=== PATIENT | female | born 1965 | race Caucasian/White ===

== ENCOUNTER 2025-09-12 08:44 | Inpatient (IN) | payer BC, SELFPAY ==
[2025-09-11] VITALS (9 sets, daily range): BP systolic 73–108; BP diastolic 48–70; BMI 30.4
[2025-09-11 20:39] LABS: Hematocrit 46.0 % (37.0-47.0); Hemoglobin 15.8 g/dL (12.0-16.0); Mean Corp Hgb Conc. 34.3 g/dL (33.0-37.0); Mean Corpuscular Volume 91.8 fL (81.0-99.0); Nucleated Red Blood Cells % 0 %; Platelet Count 300 10^3/uL (130-400); Red Cell Dist. Width 12.8 % (11.5-14.5)
[2025-09-11 20:49] LABS: ALT (SGPT) 21 U/L (0-35); AST (SGOT) 20 U/L (14-36); Albumin 4.4 g/dl (3.5-5.0); Alkaline Phosphatase 51 U/L (38-126); Blood Urea Nitrogen 43 mg/dl (7-17); Calcium 10.3 mg/dl (8.4-10.2); Carbon Dioxide 29 mmol/L (22-30); Chloride 98 mmol/L (98-107); Glucose 180 mg/dl (70-99); Potassium 3.9 mmol/L (3.5-5.1); Sodium 136 mmol/L (135-145); Total Protein 7.3 g/dl (6.3-8.2); eGFR 23.59
--- NOTE | 2025-09-11 22:46 | ED.GENMED ---
History of Present Illness
<Zahida Mcbride NP - Last Filed: 09/12/25 01:03>
General
Chief Complaint: Abdominal Symptoms
Source: patient
Exam Limitations: none
Time Seen by Provider: 09/11/25 22:37
Nursing documentation reviewed up to this point in time: agreed with
History of Present Illness
History of Present Illness:
Patient to the emergency department with complaint of severe nausea vomiting and diarrhea. She states her symptoms started yesterday. She denies any fever or chills. She denies any sick contacts. States she has been unable to eat or drink due to
the constant nausea and vomiting. Brought to the emergency department by spouse for evaluation. She denies any history of same
Past History
<Zahida Mcbride DIE MACHINE OPERATOR - Last Filed: 09/12/25 01:03>
Past History
ED Past Medical History: HTN, Other (Kidney stones) and Other (Migraines)
ED Past Surgical History:
Social History
Tobacco: Non-smoker
Review of Systems
<Zahida Mcbride DIE MACHINE OPERATOR - Last Filed: 09/12/25 01:03>
Review of Systems
Allergies reviewed?: Yes
All Other Systems: ROS reviewed and negative except as documented in HPI and ROS
Constitutional: Reports fatigue
EENT: Reports no symptoms
Respiratory: Reports no symptoms
Cardiac: Reports no symptoms
ABD/GI: Reports abdominal pain (Diffuse abdominal pain.), nausea, vomiting and diarrhea
: Reports no symptoms
Musculoskeletal: Reports no symptoms
Skin: Reports no symptoms
Neurological: Reports weakness
Psychiatric: Reports no symptoms
Phy Exam
<Zahida Mcbride DIE MACHINE OPERATOR - Last Filed: 09/12/25 01:03>
General Physical Exam
General Presentation: moderate distress
General age: appears stated age
General Skin: warm and dry
General Habitus: normal
General Mental: alert
Gastrointestinal Exam
Gastrointestinal Exam: soft, no pulsatile mass and non distended
Palpation: generalized: Moderate tenderness
Musculoskeletal Exam
Musculoskeletal Exam: full ROM and neuro vasc intact
Skin Exam
Skin Exam: normal color, warm/dry and no rash
Psychiatric Exam
Psychiatric Exam: normal mood/affect
Course
<Zahida Mcbride DIE MACHINE OPERATOR - Last Filed: 09/12/25 01:03>
Orders/Labs/Results
Orders:
Orders
09/11/25 20:25
Complete Blood Count/With Diff Urgent
Comprehensive Metabolic Panel Urgent
09/11/25 22:45
Urinalysis Reflex To Culture Urgent
Norovirus by PCR Urgent
GALLO Source: Feces/Stool
Specimen Description:
STOOL [C difficile Antigen & Toxins] Urgent
GALLO Source: Feces/Stool
Specimen Description:
Stool Culture Urgent
GALLO Source: Feces/Stool
Specimen Description:
0.9% Sodium Chloride 1000 ml [Nss] 1,000 ml IV BOLUS
09/11/25 22:48
Lactic Acid Urgent
Blood Culture Urgent
GALLO Source: Blood/Venous
Specimen Description:
09/11/25 22:49
HYDROmorphone [Dilaudid] 0.5 mg IV NOW STA
Ondansetron Injectable [Zofran] 4 mg IV NOW STA
09/11/25 23:17
0.9% Sodium Chloride 1000 ml [Nss] 1,000 ml IV BOLUS
09/12/25
CT Abd/pel Without Iv Or Oral Urgent
Reason For Exam: diffuse pain, vomiting
Abnormal Lab Results
09/11/25 09/11/25
20:25 22:48
WBC 21.0 H 10^3/uL
(4.8-10.8)
MCH 31.5 H pg
(27.0-31.0)
Abs Immat Gran (auto) 0.1 H 10^3/uL
(0-0.05)
Absolute Neuts (auto) 18.8 H 10^3/uL
(1.4-6.5)
Absolute Lymphs (auto) 0.8 L 10^3/uL
(1.2-3.4)
Absolute Monos (auto) 1.1 H 10^3/uL
(0.1-0.6)
Immature Gran % 0.6 H %
(0-0.5)
Neutrophils % 89.8 H %
(42.2-75.2)
Lymphocytes % 4.0 L %
(20.5-51.1)
BUN 43 H mg/dl
(7-17)
Creatinine 2.3 H mg/dL
(0.6-1.0)
Glucose 180 H mg/dl
(70-99)
Lactic Acid 2.9 H mmol/L
(0.7-2.0)
Calcium 10.3 H mg/dl
(8.4-10.2)
09/11/25 20:25
09/11/25 20:25
Vital Signs
Initial and Last Documented VS:
Initial Vital Signs
Temp Pulse Resp BP Pulse Ox
98.3 F 120 16 108/70 97
09/11/25 20:18 09/11/25 20:18 09/11/25 20:18 09/11/25 20:18 09/11/25 20:18
Last Documented Vital Signs
Temp Pulse Resp BP Pulse Ox
98.4 F 89 23 103/56 97
09/11/25 22:45 09/11/25 23:50 09/11/25 23:50 09/11/25 23:50 09/11/25 23:50
<Susannah Brothers, - Last Filed: 09/11/25 23:51>
Orders/Labs/Results
Orders:
Orders
09/11/25 20:25
Complete Blood Count/With Diff Urgent
Comprehensive Metabolic Panel Urgent
09/11/25 22:45
Urinalysis Reflex To Culture Urgent
Norovirus by PCR Urgent
GALLO Source: Feces/Stool
Specimen Description:
STOOL [C difficile Antigen & Toxins] Urgent
GALLO Source: Feces/Stool
Specimen Description:
Stool Culture Urgent
GALLO Source: Feces/Stool
Specimen Description:
0.9% Sodium Chloride 1000 ml [Nss] 1,000 ml IV BOLUS
09/11/25 22:48
Lactic Acid Urgent
Blood Culture Urgent
GALLO Source: Blood/Venous
Specimen Description:
09/11/25 22:49
HYDROmorphone [Dilaudid] 0.5 mg IV NOW STA
Ondansetron Injectable [Zofran] 4 mg IV NOW STA
09/11/25 23:17
0.9% Sodium Chloride 1000 ml [Nss] 1,000 ml IV BOLUS
09/12/25
CT Abd/pel Without Iv Or Oral Urgent
Reason For Exam: diffuse pain, vomiting
Abnormal Lab Results
09/11/25 09/11/25
20:25 22:48
WBC 21.0 H 10^3/uL
(4.8-10.8)
MCH 31.5 H pg
(27.0-31.0)
Abs Immat Gran (auto) 0.1 H 10^3/uL
(0-0.05)
Absolute Neuts (auto) 18.8 H 10^3/uL
(1.4-6.5)
Absolute Lymphs (auto) 0.8 L 10^3/uL
(1.2-3.4)
Absolute Monos (auto) 1.1 H 10^3/uL
(0.1-0.6)
Immature Gran % 0.6 H %
(0-0.5)
Neutrophils % 89.8 H %
(42.2-75.2)
Lymphocytes % 4.0 L %
(20.5-51.1)
BUN 43 H mg/dl
(7-17)
Creatinine 2.3 H mg/dL
(0.6-1.0)
Glucose 180 H mg/dl
(70-99)
Lactic Acid 2.9 H mmol/L
(0.7-2.0)
Calcium 10.3 H mg/dl
(8.4-10.2)
09/11/25 20:25
09/11/25 20:25
Vital Signs
Initial and Last Documented VS:
Initial Vital Signs
Temp Pulse Resp BP Pulse Ox
98.3 F 120 16 108/70 97
09/11/25 20:18 09/11/25 20:18 09/11/25 20:18 09/11/25 20:18 09/11/25 20:18
Last Documented Vital Signs
Temp Pulse Resp BP Pulse Ox
98.4 F 89 23 103/56 97
09/11/25 22:45 09/11/25 23:50 09/11/25 23:50 09/11/25 23:50 09/11/25 23:50
<Zahida Mcbride NP - Last Filed: 09/12/25 01:03>
*Radiology
Radiology exam reviewed: radiology read reviewed
*Pulse Oximetry
SaO2: 99
Oxygen Mode of Delivery: Room air
Patient hypoxic: no
*Critical Care Note
Total Time (30-74mins, 75-104mins- exclusive of procedures): Not Applicable
<Zahida Mcbride NP - Last Filed: 09/12/25 01:03>
Update Note
Update Note:
Patient to the emergency department with complaint of diffuse abdominal pain nausea vomiting and diarrhea. She reports intermittent episodes of bloody diarrhea. Symptoms started yesterday and have become progressively worse over the past 24 hours.
Vital signs stable she remains afebrile. Labs reviewed WBC 21.0 noted, lactic 2.9. She was given 2LNSS. BUN 43/creat 2.3., LFTs normal. CT of abdomen and pelvis was completed. Results of wall thickening in the transverse colon through the
sigmoid colon compatible with colitis. She will be admitted to the hospitalist for colitis, dehydration, JULIANNE. Antibiotics started in the ED. discussed CT findings and admission plan with patient and she is agreeable.
ED Attending Note
<Zahida Mcbride NP - Last Filed: 09/12/25 01:03>
-
Portions of this chart may have been created with voice recognition software.� Occasional wrong word or��sound alike� substitutions may have occurred due to the inherent limitations of voice recognition software.
<Susannah Brothers DO - Last Filed: 09/11/25 23:51>
ED Attending Note
Patient seen and examined by attending physician: Yes
I performed a history and physical exam of patient and discussed management with resident, I reviewed resident's note and agree with documented findings and plan of care.: Yes
ED Attending Note:
60-year-old woman with history of hypertension, kidney stones, migraine headaches presents with over 24-hour history of generalized abdominal pain associated with nausea/vomiting/diarrhea.
Symptoms are moderate to severe in nature, multiple episodes of vomiting throughout the past 24 hours as well as multiple watery stools, initially liquid brown stool, has noted some blood in her stool this evening. She denies fevers or chills but
admits to generalized malaise and some lightheadedness upon standing tonight.
Symptoms began after eating a cheese steak for dinner last night. No close contacts with similar symptoms and no family members consumed similar cheese steak.
No recent travel nor recent antibiotic use.
No history of similar episodes in the past.
60-year-old woman appears her stated age, awake and alert, mildly ill in appearance but easily communicative.
Vital signs notable for moderate tachycardia and mild hypotension initially.
Thus far has received 1 L normal saline solution tachycardia and hypotension improving. She remains afebrile. Second liter of normal saline solution infusing now.
HEENT: Oral mucosa is mildly dry. Anicteric.
Heart is regular rate and rhythm at 90. No murmur no rub.
Lungs are clear to auscultation. No respiratory distress.
Abdomen is soft, nondistended, mild generalized tenderness to palpation. Normal active bowel sounds. No palpable masses.
Concern for acute gastroenteritis/acute colitis either foodborne versus viral in nature. Bowel obstruction is also consideration. C. difficile colitis is a consideration however no history of C. difficile in the past and no recent antibiotics. No
close contacts with similar symptoms.
Concern for acute sepsis
Laboratory studies reveal markedly elevated white blood cell count of 21.
Acute kidney injury with BUN of 43, creatinine of 2.3. Normal electrolytes.
Random glucose mildly elevated at 180. LFTs within normal limits.
Lactic acid mildly elevated at 2.9.
Abnormal vital signs, elevated lactic acid and mild hypotension initially consistent with acute sepsis.
Will check CT abdomen and pelvis. Continue IV fluids. Continue as needed pain medication, antiemetics for symptom control.
Will plan for stool cultures if diarrhea recurs.
Consider IV antibiotics depending on CAT scan result.
Due to acute kidney injury, SIRS/sepsis, patient will require acute hospitalization.
Discharge Plan
Departure
Patient Disposition: Admit
Date of Disposition: 09/12/25
Time of Disposition: 01:00
Presentation/result/management discussed w/ accepting MD/DO: Hospitalist
Condition: Fair
Covid-19: Not Applicable
Discharge Problem:
Colitis, Acute dehydration, JULIANNE (acute kidney injury)
Prescriptions:
No Action
lisinopril 20 MG tablet
40 mg PO DAILY
sumatriptan succinate 50 MG tablet
100 mg PO PRN PRN (Reason: migraines)
Effexor:
150 mg PO DAILY
hydrochlorothiazide 12.5 MG capsule
12.5 mg PO DAILY
uqaqzxsw-twt-jiztc acid-lutein 1 EACH tablet,chewable
1 ea PO DAILY
Referrals:
Vannessa Hannah PA-C [Family Provider]
Interventions
Interventions:
*Risk Screen - Suicide Last Done: 09/11/25 20:20
*General Assessment Last Done: 09/11/25 22:36
*Neglect/Abuse Screening Last Done: 09/11/25 20:20
*ED- Fall Risk Assessment Last Done: 09/11/25 22:36
*ED COVID-19 Vaccine History Last Done: 09/11/25 22:36
*ED Influenza Vaccine History Last Done: 09/11/25 22:36
FA-Aawjej-Onmwgnqjbe Assessment Last Done: 09/11/25 22:36
Discharge Date and Time
Print Language: JAPANESE
[2025-09-11] MEDS: NSS 1000 IV ×2 (22:53→23:29)
[2025-09-11] MEDS: DILAUDID 0.5 MG IV (22:54)
[2025-09-11] MEDS: ZOFRAN 4 MG IV (22:54)
[2025-09-12] VITALS (17 sets, daily range): BP systolic 92–114; BP diastolic 57–91
--- NOTE | 2025-09-12 01:08 | HPS.HSE ---
Family Physician
-
Family Physician: Vannessa Hannah PA-C
Chief Complaint
-
Abdominal symptoms
History of Present Illness
This is a 60-year-old female with past medical history significant for hypertension, migraine headaches presenting to the emergency department with diarrhea and lightheadedness.
Patient reports onset of symptoms yesterday. She noticed vomiting and diarrhea that started simultaneously with some associated abdominal cramps and pain. She reports chills but no fevers. She states she has been having continuous diarrhea over
the last 24 hours going more than 6 times a day and several times an hour. However since she has been in the Emergency Department she has not had any bowel movement. She last had a vomiting while she was in triage. It was nonbloody and
nonbilious. She denies any recent travels. 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
In the emergency department she was afebrile, blood pressure was 103/56 with a pulse rate of 89 and she was satting 97% on room air.
Lactic acid was 2.9, WBC is 21 hemoglobin and platelets were 15.8 and 300. Her electrolytes were within the normal range. BUN and creatinine were 43 and 2.3 with a glucose of 100.
CT of the abdomen and pelvis showing wall thickening of the transverse colon through 3 sigmoid colon compatible with acute colitis.
Medical History
Past Medical History
Past Medical History: Reports HTN and Other (Nephrolithiasis)
Past Surgical History: Reports Other (Bilateral ureteroscopy, laser lithotripsy and stenting, Right Ureteroscopy, Laser Lithotripsy, Laser abalation of lateral Calyceal Diverticulum, )
Social History
Tobacco: Non-smoker
Alcohol: None
Drug: None
Family History
Family History: Not pertinent
Allergies / Home Medications
Allergies reflects when Allergies were last updated in [facility].
Home Medications with original date entered in [facility]
Allergy/Medication List:
Allergies
Allergy/AdvReac Type Severity Reaction Status Date / Time
No Known Allergies Allergy Verified 12/19/20 07:56
Home Medications
Effexor: 150 mg PO DAILY 05/26/20
lisinopril 20 mg tablet 40 mg PO DAILY 05/26/20
sumatriptan succinate 50 mg tablet 100 mg PO PRN PRN migraines 05/26/20
hydrochlorothiazide 12.5 mg capsule 12.5 mg PO DAILY 12/19/20
cfzvbyxjurmy-kljq-lfseq acid 200 mcg-lutein 137.5 mcg chewable tablet 1 ea PO DAILY 12/19/20
Review of Systems
-
Constitutional: Reports No Symptoms
EENT: Reports No Symptoms
Respiratory: Reports No Symptoms
Cardiac: Reports No Symptoms
Abdomen/GI: Reports Abdominal Pain, Vomiting and Diarrhea
: Reports No Symptoms
Musculoskeletal: Reports No Symptoms
Skin: Reports No Symptoms
Neurological: Reports No Symptoms
Endocrine: Reports No Symptoms
Hematologic/Lymphatic: Reports No Symptoms
Psych: Reports No Symptoms
Physical Exam
Vital Signs
Vital Signs
Temp Pulse Resp BP Pulse Ox
98.4 F 89 23 103/56 97
09/11/25 22:45 09/11/25 23:50 09/11/25 23:50 09/11/25 23:50 09/11/25 23:50
Physical Exam
General: Well Developed, Well Nourished and No Apparent Distress
HEENT: NormoCephalic, Moist mucous membranes and Atraumatic
Respiratory: Clear
Cardiac: S1/S2 and Regular Rhythm; No Murmur or Rub
GI: Soft, Non Tender, Non Distended and Normal Bowel Sounds; No Organomegaly
Rectal: Deferred by Provider
Musculoskeletal: No Clubbing, No Cyanosis and No Edema
Skin: No Rash
Neuro: AO x 3 and Nonfocal/grossly intact
Psych: Calm
Laboratory Results
-
09/11/25 20:25
09/11/25 20:25
Laboratory Results
Lactic Acid 2.9 mmol/L (0.7-2.0) H 09/11/25 22:48
Total Bilirubin 0.7 mg/dl (0.2-1.3) 09/11/25 20:25
AST 20 U/L (14-36) 09/11/25 20:25
ALT 21 U/L (0-35) 09/11/25 20:25
Alkaline Phosphatase 51 U/L (38-126) 09/11/25 20:25
Data Reviewed
-
CT Scan: Report Reviewed by me
Lab Data: Labs Reviewed by me
Old Records: Reviewed
Impression/Plan
-
IMPRESSION:
60-year-old with past medical history of migraine headaches and hypertension presenting to the emergency department with nausea vomiting and diarrhea starting about 1-1/2 days ago. She reports being lightheaded and dizzy. She reports chills shakes
but denies any fever. She is afebrile here but has leukocytosis to 21. No diarrhea so find emergency department no further vomiting and pain under control. Lactic acid is 2.9. She has JULIANNE with a creatinine of 2.3 up from a baseline of 1.3.
PLAN:
Diarrhea -suspect viral enterocolitis. CT scan compatible with colitis. Patient does have leukocytosis. No recent antibiotic use. No history of CAD. Denies history of inflammatory bowel disease.
- admit to med/surg
- pain control and antiemetics
- stool studies including cdiff, wbc and culture pending
- blood and urine cultures sent
- hold further abx for now unless febrile
- IV fluid resuscitation
JULIANNE - Cr 2.4 from bl 1.3. Pre-renal azotemia suspected.
- hold hctz/lisinopril
- IV fluids as above
HTN - currently bp is low but not hypotensive
- hold antihypertensives for now
DVT PPX - heparin sq
[2025-09-12] MEDS: ZOSYN 50 IV (01:13)
[2025-09-12] MEDS: NSS 1000 IV ×3 (02:56→23:42)
[2025-09-12 06:40] LABS: Hematocrit 38.4 % (37.0-47.0); Hemoglobin 12.7 g/dL (12.0-16.0); Mean Corp Hgb Conc. 33.1 g/dL (33.0-37.0); Mean Corpuscular Volume 98.2 fL (81.0-99.0); Platelet Count 211 10^3/uL (130-400); Red Cell Dist. Width 12.9 % (11.5-14.5)
[2025-09-12 07:23] LABS: Blood Urea Nitrogen 39 mg/dl (7-17); Calcium 8.6 mg/dl (8.4-10.2); Carbon Dioxide 28 mmol/L (22-30); Chloride 103 mmol/L (98-107); Estimated Creatinine Clearance 28 ml/min; Glucose 109 mg/dl (70-99); Potassium 3.5 mmol/L (3.5-5.1); Sodium 138 mmol/L (135-145); eGFR 26.31
[2025-09-12] MEDS: EFFEXOR XR 150 MG PO (08:48)
[2025-09-12] MEDS: ZOFRAN 4 MG IV (08:48)
[2025-09-12] MEDS: ROXICODONE 5 MG PO ×2 (08:48→15:55)
[2025-09-12] MEDS: HEPARIN 5000 UNITS SC ×2 (08:49→15:55)
[2025-09-12] MEDS: KCL 40 MEQ PO (11:02)
[2025-09-12 11:34] LABS: Magnesium 1.9 mg/dl (1.6-2.3)
--- NOTE | 2025-09-12 12:12 | W.PN.HOSP.TC ---
Today's Communication/Plan
-
IV fluid support
Hold antihypertensives
Check stool studies
Urinalysis
Advance diet as tolerated
Update home medication list
Assessment / Plan
Assessment / Plan
Gen-AAOx3, NAD
HEENT-NC, AT, anicteric, clear oral mm
Neck-supple
CV-reg, no M, +S1/S2
Lungs-clear B/L
Abd-soft, NT, ND
Ext-no edema
Musculoskeletal-no cyanosis, clubbing
Skin-warm and dry
Neuro-grossly non-focal
Psych-calm, cooperative
Sepsis due to acute gastroenteritis/septic shock -sepsis with end organ damage of acute kidney injury. Sepsis present on admission. Presentation with shock, hypotension, leukocytosis, elevated lactate. Initial blood pressure 73/48. Blood
pressure improving with IV fluids. Did not require vasopressors. Holding antihypertensives. WBC count now trending down. Blood cultures sent, pending. Not currently on antibiotics.
Acute gastroenteritis -likely infectious, exposed to patient recently with norovirus.
Admission CT scan shows bowel wall thickening and moderate inflammatory change adjacent to the distal transverse colon, descending colon, sigmoid colon consistent with moderate colitis.
Check stool studies. Discussed with patient and nurse.
Tolerating clear liquids, advance as tolerated.
Recommend outpatient follow-up with gastroenterology for colonoscopy. Patient has never had a colonoscopy. We discussed the importance of colon cancer screening.
JULIANNE -likely due to sepsis, shock, volume depletion in the setting of 1 functioning kidney. Improving with IV fluids. Baseline creatinine 1.1, approximately 1 month ago as per patient. Check urinalysis, monitor urine output.
Acute lower GI bleed -due to acute gastroenteritis. Hemoglobin has been normal. Monitor closely.
Essential hypertension -currently hypotensive. Hold antihypertensives.
Nephrolithiasis -bilateral nephrolithiasis without hydronephrosis or ureteral stone noted on admission CT. She is complaining of hematuria, urinalysis pending. Asymmetric left renal atrophy noted, unchanged compared to prior study. Patient notes
that she has 1 functioning kidney.
Obesity due to excess calories
Full code
Please obtain home medication list. Discussed with nursing.
updated at the bedside.
Anticipated Discharge: 24 - 48 hours
Subjective/Interval History
-
Date of Service: September 12, 2025
Patient seen and examined. Had bloody bowel movement this morning. No further loose stools. Denies vomiting. Complaining of lack of appetite.
Objective Data
-
Labs:
Laboratory Results
09/12/25
05:54
WBC 15.9 H
Hgb 12.7
Hct 38.4
Plt Count 211 D
Sodium 138
Potassium 3.5
Chloride 103
Carbon Dioxide 28
BUN 39 H
Creatinine 2.1 H
Glucose 109 H
Calcium 8.6 D
Vital Signs:
Vital Signs
Temp Pulse Resp BP Pulse Ox
98.4 F 90 20 104/68 95
09/12/25 07:01 09/12/25 07:01 09/12/25 07:01 09/12/25 07:01 09/12/25 07:01
Review of Systems
-
History Source: Patient
All other systems: Reviewed and negative
--- NOTE | 2025-09-12 12:29 | CM ---
CM reviewed chart and spoke with patient and her significant other Gunner at bedside.
Lives in a 2 story home with SO Gunner .
PLOF Independent with ADLs and ambulation. 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
no DME
PCP Dr. Vannessa Hannah
RX plan yes
Pharmacy [facility] in [place]
no hx of VN nor SNF in the past
DCP home with no needs but will continue to follow up
[employer] Gunner is able to provide transporation at the time of DC
CM will continue to follow up for any dcp needs
[2025-09-12 16:33] LABS: Urine Character Slightly Cloudy (Clear)
[2025-09-12 16:43] LABS: Urine Squamous Cell 21-25 /LPF (Few)
[2025-09-12 16:44] LABS: Urine Red Blood Cell 0-2 /HPF (0-2); Urine White Cell 50-60 /HPF (0-5)
[2025-09-12] MEDS: DILAUDID 0.5 MG IV (20:26)
[2025-09-13] MEDS: HEPARIN SC ×2 (00:24→08:15)
[2025-09-13 07:00] VITALS: BP 113/68
[2025-09-13 07:00] LABS: Hematocrit 36.0 % (37.0-47.0); Hemoglobin 11.6 g/dL (12.0-16.0); Mean Corp Hgb Conc. 32.2 g/dL (33.0-37.0); Mean Corpuscular Volume 100.3 fL (81.0-99.0); Nucleated Red Blood Cells % 0 %; Platelet Count 149 10^3/uL (130-400); Red Cell Dist. Width 12.7 % (11.5-14.5)
[2025-09-13 07:20] LABS: Blood Urea Nitrogen 20 mg/dl (7-17); Calcium 8.7 mg/dl (8.4-10.2); Carbon Dioxide 28 mmol/L (22-30); Chloride 104 mmol/L (98-107); Estimated Creatinine Clearance 49 ml/min; Glucose 84 mg/dl (70-99); Potassium 3.9 mmol/L (3.5-5.1); Sodium 133 mmol/L (135-145); eGFR 51.50
[2025-09-13] MEDS: EFFEXOR XR 150 MG PO (08:13)
--- NOTE | 2025-09-13 10:52 | W.DS.TRANS ---
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
-
Discharge Instructions:
Discharge Diagnosis/Procedures Acute gastroenteritis, sepsis, acute kidney
injury
Diet Low Residue
Activity As tolerated
Driving Restrictions As prior to admission
Bathing Restrictions None
Instructions:
Stand-Alone Forms:
Changes to Home Medications: No
Discharge Medications:
DC Medications w/original date entered in [facility]
Effexor: 150 mg PO DAILY Depression 05/26/20
lisinopril 20 mg tablet 10 mg PO DAILY Blood Pressure 05/26/20
sumatriptan succinate 50 mg tablet (Imitrex) 100 mg PO PRN PRN migraines 05/26/20
hydrochlorothiazide 12.5 mg capsule 12.5 mg PO DAILY Fluid Retention/Swelling 12/19/20
pqtgaizwfpjg-ohta-ytwsg acid 200 mcg-lutein 137.5 mcg chewable tablet 1 ea PO DAILY Supplement 12/19/20
Ozempic 2 mg SC Q2W Diabetes 09/12/25
Home Medication Changes
Pending Results: No
--- NOTE | 2025-09-13 11:01 | W.PN.HOSP.TC ---
Today's Communication/Plan
-
Discharge
Assessment / Plan
Assessment / Plan
Gen-AAOx3, NAD
HEENT-NC, AT, anicteric, clear oral mm
Neck-supple
CV-reg, no M, +S1/S2
Lungs-clear B/L
Abd-soft, NT, ND
Ext-no edema
Musculoskeletal-no cyanosis, clubbing
Skin-warm and dry
Neuro-grossly non-focal
Psych-calm, cooperative
Sepsis due to acute gastroenteritis/septic shock -sepsis with end organ damage of acute kidney injury. Sepsis present on admission. Presentation with shock, hypotension, leukocytosis, elevated lactate. Initial blood pressure 73/48. Blood
pressure improving with IV fluids. Did not require vasopressors. Holding antihypertensives. WBC count now normal. Blood cultures negative so far. Did not require antibiotics.
Acute gastroenteritis -likely infectious, exposed to patient recently with norovirus.
Admission CT scan shows bowel wall thickening and moderate inflammatory change adjacent to the distal transverse colon, descending colon, sigmoid colon consistent with moderate colitis.
No stool available for testing.
Diet advanced to low residue. Low lactose. Discussed with patient.
Recommend outpatient follow-up with gastroenterology for colonoscopy. Patient has never had a colonoscopy. We discussed the importance of colon cancer screening.
JULIANNE -likely due to sepsis, shock, volume depletion in the setting of 1 functioning kidney. Improving with IV fluids. Baseline creatinine 1.1, approximately 1 month ago as per patient.
Creatinine improved to 1.2 today.
Hyponatremia -133. Hold HCTZ on discharge, BMP in 1 week.
Asymptomatic pyuria -noted on urinalysis. Doubt UTI.
Acute lower GI bleed -due to acute gastroenteritis. Hemoglobin has been normal. Monitor closely.
Essential hypertension -blood pressure improved. Can resume meds on discharge.
Nephrolithiasis -bilateral nephrolithiasis without hydronephrosis or ureteral stone noted on admission CT. She is complaining of hematuria, urinalysis pending. Asymmetric left renal atrophy noted, unchanged compared to prior study. Patient notes
that she has 1 functioning kidney.
Obesity due to excess calories
Full code
Dispo -medically stable for discharge today. Outpatient follow-up with PCP, GI.
Discussed with nursing.
updated at the bedside.
32 minutes spent in discharge process.
Anticipated Discharge: Today
Subjective/Interval History
-
Date of Service: September 13, 2025
Patient seen and examined. Feeling better. No complaints.
Objective Data
-
Labs:
Laboratory Results
09/13/25
05:34
WBC 8.9
Hgb 11.6 L
Hct 36.0 L
Plt Count 149 D
Sodium 133 L
Potassium 3.9
Chloride 104
Carbon Dioxide 28
BUN 20 H
Creatinine 1.2 H
Glucose 84
Calcium 8.7
Vital Signs:
Vital Signs
Temp Pulse Resp BP Pulse Ox
98.7 F 89 18 113/68 96
09/13/25 07:00 09/13/25 07:00 09/13/25 07:00 09/13/25 07:00 09/13/25 07:00
I&O
09/12/25 09/13/25 09/14/25
06:59 06:59 06:59
Intake Total 1959
Balance 1959
Review of Systems
-
History Source: Patient
All other systems: Reviewed and negative
[2025-09-13 11:28] VITALS: BP 118/65
== END 2025-09-13 11:50 | disposition home or self-care (01) | DRG 871 ==
LOC: 2 NORTH 08:44
PROVIDERS: Nurse Practitioner; Student in an Organized Health Care Education/Training Program; ADMITTING PHYSICIAN Internal Medicine; ATTENDING PHYSICIAN Hospitalist; EMERGENCY PHYSICIAN Emergency Medicine; FAMILY PHYSICIAN Physician Assistant
DX: A41.9 Sepsis, unspecified organism (principal); R65.21 Severe sepsis with septic shock; N17.9 Acute kidney failure, unspecified; K92.2 Gastrointestinal hemorrhage, unspecified; E87.1 Hypo-osmolality and hyponatremia; I10 Essential (primary) hypertension; E66.09 Other obesity due to excess calories; Z68.30 Body mass index [BMI] 30.0-30.9, adult; N20.0 Calculus of kidney; Z87.442 Personal history of urinary calculi
CPT/HCPCS: 74176; 80048; 80053; 81003; 81015; 83605; 83735; 85025; 85027; 87040; 87086; 96365; 99285